=== PATIENT | female | born 1940 | race Caucasian/White ===

== ENCOUNTER 2017-10-27 13:13 | Emergency (ER) | payer MEDICARE, OTHER ==
[2017-10-27] MEDS ORDERED: Sodium Chloride 0.9% 10 ML Syringe FLUSH PRN (13:27)
--- NOTE | 2017-10-27 14:05 | EDM.PDOC ---
ED HPI GENERAL MEDICAL PROBLEM - General Chief Complaint: Syncope Stated Complaint: IN BY AMBULANCE Time Seen by Provider: 10/27/17 13:15 Source of Information: Reports: Patient, RN, RN Notes Reviewed History Limitations: Reports: No Limitations - History of Present Illness INITIAL COMMENTS - FREE TEXT/NARRATIVE: Patient presents to ER per [facility] from the [facility]. Patient states she last remembers playing her machine and then slumped over. Patient states she has pain, numbness or tingling complaints. Patient states only past medical history of CHF an diabetes mellitus II. Patient states she rode a senior bus to the [facility] today. Report from ambulance upon arrival to [facility] sats were 37%, heart rate 28 and blood sugar 119. Upon arrival heart rate in the 60s and does become bradycardiac to the low 40s. She is on 15 liters NRB and she is 94%. She states she feels a "buzzing" sensation in head and feels it is resolving Onset: Today Location: Reports: Generalized Severity: Moderate Improves with: Reports: None Worsens with: Reports: None Associated Symptoms: Reports: No Other Symptoms - Related Data Allergies Allergy/AdvReac Type Severity Reaction Status Date / Time No Known Allergies Allergy Verified 10/27/17 14:55 Past Medical History Cardiovascular History: Reports: Heart Failure, Heart Murmur Endocrine/Metabolic History: Reports: Diabetes, Type II ED ROS GENERAL - Review of Systems Review Of Systems: ROS reveals no pertinent complaints other than HPI. - Physical Exam Exam: See Below Exam Limited By: No Limitations General Appearance: Alert, WD/WN, No Apparent Distress Eye Exam: Bilateral Eye: EOMI, Normal Inspection, PERRL Ears: Normal External Exam, Normal Canal, Hearing Grossly Normal, Normal TMs Nose: Normal Inspection, Normal Mucosa, No Blood Throat/Mouth: Normal Inspection, Normal Lips, Normal Teeth, Normal Gums, Normal Oropharynx, Normal Voice, No Airway Compromise Head Exam: Atraumatic, Normocephalic Neck: Normal Inspection, Supple, Non-Tender, Full Range of Motion Respiratory/Chest: No Respiratory Distress, Lungs Clear, Normal Breath Sounds, No Accessory Muscle Use, Chest Non-Tender Cardiovascular: Other (murmur +3. ) GI/Abdominal: Normal Bowel Sounds, Soft, Non-Tender, No Organomegaly, No Distention, No Abnormal Bruit, No Mass (Female) Exam: Deferred Rectal (Female) Exam: Deferred Neuro Exam (Abbreviated): Alert, Oriented, CN II-XII Intact, Normal Cognition, Normal Gait, Normal Reflexes, No Motor/Sensory Deficits Back Exam: Normal Inspection, Full Range of Motion, NT Extremities: Normal Inspection, Normal Range of Motion, Non-Tender, No Pedal Edema, Normal Capillary Refill Psychiatric: Normal Affect, Normal Mood Skin Exam: Warm, Dry, Intact, Normal Color, No Rash EKG INTERPRETATION EKG Date: 10/27/17 Time: 13:11 Rhythm: NSR Rate (Beats/Min): 60 QRS: LBBB Comparison: NA - No Prior EKG Course - Vital Signs Last Recorded V/S: Last Vital Signs Temp 97 F 10/27/17 13:13 Pulse 60 10/27/17 13:13 Resp 16 10/27/17 13:13 BP 164/60 H 10/27/17 13:13 Pulse Ox 100 10/27/17 13:13 - Orders/Labs/Meds Orders: Active Orders 24 hr Category Date Time Status EKG Documentation Completion [RC] STAT Care 10/27/17 13:27 Active Peripheral IV Care [RC] . DIRECTED Care 10/27/17 13:28 Active Peripheral IV Insertion Adult [OM.PC] Stat Oth 10/27/17 13:27 Ordered Labs: Laboratory Tests 10/27/17 10/27/17 Range/Units 13:51 13:51 WBC 9.6 (5.0-10.0) 10^3/uL RBC 3.78 L (4.2-5.4) 10^6/uL Hgb 10.8 L (12.0-16.0) g/dL Hct 33.6 L (37.0-47.0) % MCV 88.9 (80-100) fL MCH 28.6 (27.0-34.0) pg MCHC 32.1 L (33.0-35.0) g/dL Plt Count 169 (150-450) 10^3/uL Neut % (Auto) 60.8 (42.2-75.2) % Lymph % (Auto) 30.1 (20.5-50.1) % Heard % (Auto) 5.5 (2-8) % Eos % (Auto) 3.1 H (1.0-3.0) % Baso % (Auto) 0.5 (0.0-1.0) % Sodium 136 (135-145) mmol/L Potassium 5.0 (3.6-5.0) mmol/L Chloride 101 (101-111) mmol/L Carbon Dioxide 25.0 (21.0-31.0) mmol/L Anion Gap 15.0 BUN 42 H (7-18) mg/dL Creatinine 2.1 H (0.6-1.3) mg/dL Est Cr Clr Drug Dosing 16.63 mL/min Estimated GFR (MDRD) 23 BUN/Creatinine Ratio 20.00 Glucose 126 H (74-105) mg/dL Calcium 9.9 (8.4-10.2) mg/dl Total Bilirubin 0.8 (0.2-1.0) mg/dL AST 15 (10-42) IU/L ALT 10 (10-60) IU/L Alkaline Phosphatase 76 (42-121) IU/L Troponin I < 0.02 (0.00-0.02) ng/ml B-Natriuretic Peptide 243 H (0-100) pg/ml Total Protein 7.5 (6.7-8.2) g/dl Albumin 3.7 (3.2-5.5) g/dl Globulin 3.8 Albumin/Globulin Ratio 0.97 Ethyl Alcohol < 5 mg/dL Meds: Medications Discontinued Medications Generic Name Dose Route Start Last Admin Trade Name Freq PRN Reason Stop Dose Admin Sodium Chloride 10 ml 10/27/17 13:27 Saline Flush FLUSH ASDIRECTED PRN Keep Vein Open - Radiology Interpretation Free Text/Narrative:: Head CT without contrast: IMPRESSION: No acute intracranial abnormality seen. Thank you for allowing us to participate in the care of your patient. Dictated and Authenticated by: Zoey Rouse MD 10/27/2017 2:02 PM Central Time ([place] & [place] See Rad report Chest xray: IMPRESSION: 1. Cardiomegaly. 2. Pulmonary vascular congestion. Prominence of the pulmonary interstitium possibly related to lowgrade chronic congestive heart failure. 3. No lobar consolidation seen. See rad report Departure - Departure Time of Disposition: 15:28 Disposition: Home, Self-Care 01 Condition: Fair Clinical Impression: Syncope Qualifiers: Syncope type: unspecified Qualified Code(s): R55 - Syncope and collapse - Discharge Information *PRESCRIPTION DRUG MONITORING PROGRAM REVIEWED*: No *COPY OF PRESCRIPTION DRUG MONITORING REPORT IN PATIENT ILENE: No Instructions: Syncope, [id number] Referrals: PCP,Anitha [Primary Care Provider] - Forms: ED Department Discharge Additional Instructions: Follow up with your primary care facility early next week. Move Cardiology appointment up sooner. Present to nearest ER with any further problems. - My Orders Last 24 Hours: My Active Orders 10/27/17 13:27 EKG Documentation Completion [RC] STAT Peripheral IV Insertion Adult [OM.PC] Stat 10/27/17 13:28 Peripheral IV Care [RC] . DIRECTED - Assessment/Plan Last 24 Hours: My Active Orders 10/27/17 13:27 EKG Documentation Completion [RC] STAT Peripheral IV Insertion Adult [OM.PC] Stat 10/27/17 13:28 Peripheral IV Care [RC] . DIRECTED
[2017-10-27 14:23] LABS: CHLORIDE,CL 101 mmol/L (101-111); SODIUM,NA 136 mmol/L (135-145)
--- NOTE | 2017-10-30 14:19 | EKG ---
10/27/2017 - TOREY ALLRED MUNA - TIME: 1:11 p.m. FINDINGS: As per reading, sinus rhythm at 60, left bundle branch block. [facility] /[id number]
--- NOTE | 2017-10-30 14:28 | EKG ---
10/27/2017 - TOREY ALLRED MUNA - TIME: 1:11 p.m. FINDINGS: Sinus rhythm at 60 with left bundle branch block. [facility] /[id number]
--- NOTE | 2017-10-30 23:55 | EKG ---
10/27/2017 - TOREY ALLRED MUNA - TIME: 1:11 p.m. As per my reading, sinus rhythm at 50 with left bundle branch block. [facility] /[id number]
--- NOTE | 2017-10-31 00:15 | EKG ---
10/27/2017 - TOREY ALLRED MUNA - TIME: 1:11 p.m. Sinus rhythm at 50 with left bundle branch block. [facility] /[id number]
== END 2017-10-27 15:45 | disposition home or self-care (01) ==
LOC: DL.ED 13:13
DX: R55 Syncope and collapse (principal); I50.9 Heart failure, unspecified; E11.9 Type 2 diabetes mellitus without complications
CPT/HCPCS: 36415; 70450; 71045; 80053; 83880; 84484; 85025; 93005; 93010; 99285; G0480